=== PATIENT | female | born 1980 | race Caucasian/White ===

== ENCOUNTER 2020-12-17 13:50 | Outpatient (CLI) | payer OTHER, SELFPAY ==
--- NOTE | 2020-12-17 | ECHO_ITS ---
Patient Info Name: Meka Wilson Age: 40 years : 1980 Gender: Female Ht: 62 in Wt: 140 lbs BSA: 1.68 m2 HR: 78 bpm BP: 133 / 87 mmHg Heart Rhythm: Sinus Rhythm Technical Quality: Good Exam Date: 12/17/2020 2:49 PM Exam Location: [facility] Patient Status: Outpatient Admit Date: 12/17/2020 Staff Ordering Physician: ArvindClement MD Transcribing Machine Operator: Lelo Almeida RDCS Attending Provider: Arvind, Clement Cespedes MD Referring Physician: Arvind DOW; Exam Type: CA echo doppler color flow Study Info Indications - FAMILY HX/O BAV - Z82.79 Complete two-dimentional, color flow and Doppler transthoracic echocardiogram is performed with agitated saline and with contrast to opacify the left ventricle and to improve the delineation of the left ventricle endocardial borders. Summary 1. Left ventricular systolic function is normal, estimated at 60-65%. 2. There is no increased left ventricular wall thickness. 3. The aortic valve is trileaflet. 4. No pulmonary hypertension, estimated pulmonary arterial systolic pressure is 23 mmHg. Left Ventricle Left ventricular chamber dimension is normal. Left ventricular systolic function is normal, estimated at 60-65%. There is no increased left ventricular wall thickness. The left ventricular diastolic function is normal. Right Ventricle Right ventricular chamber dimension is normal. Right ventricular systolic function is normal. Left Atria Left atrial chamber dimension is normal. Right Atria Right atrial chamber dimension is normal. Aortic Valve The aortic valve is trileaflet. There is no aortic valve stenosis. There is no aortic valve regurgitation. Pulmonic Valve The pulmonic valve is not well visualized. There is trace pulmonic regurgitation. Mitral Valve The mitral valve has normal leaflets. There is no mitral valve regurgitation. Tricuspid Valve The tricuspid valve leaflets are normal. There is trace tricuspid valve regurgitation. No pulmonary hypertension, estimated pulmonary arterial systolic pressure is 23 mmHg. Pericardium/Pleural The pericardium appears normal. There is no pericardial effusion. Aorta The aortic root size at the sinus of Valsalva is normal. Left Ventricular Outflow Tract Name Value Normal LVOT 2D LVOT Diameter 2.0 cm LVOT Doppler LVOT Peak Gradient 5 mmHg LVOT Mean Gradient 3 mmHg LVOT VTI 21 cm LVOT VTI/AV VTI Ratio 0.9 LVOT Stroke Volume 64 ml LVOT CO 13.7 l/min LVOT CI 8.1 l/min/m2 Pulmonic Valve Name Value Normal PV Doppler PV Peak Gradient 13 mmHg Mitral Valve
== END 2020-12-17 13:51 | disposition home or self-care (01) ==
PROVIDERS: PCP Pediatrics; Visit Provider Pediatrics
DX: Z82.79 Family history of other congenital malformations, deformations and chromosomal abnormalities (principal)
CPT/HCPCS: 93306

== ENCOUNTER → 2021-08-30 13:16 | Outpatient (CLI) | payer OTHER, SELFPAY ==
--- NOTE | ~2021-08-30 | MM_ITS ---
EXAMINATION: MM screening ashwin BI w tamera HISTORY: Screening TECHNIQUE: Craniocaudal and mediolateral oblique 3-D tomosynthesis images were obtained and synthetic 2-D images were generated. CAD analysis was submitted and interpreted. COMPARISON: 05/21/2019 BREAST PARENCHYMAL COMPOSITION: The breasts are heterogeneously dense, which may obscure small masses . FINDINGS: There is no evidence of suspicious mass, calcification, or architectural distortion to sugg est malignancy in either breast. There has been no suspicious interval change. IMPRESSION: 1. No mammographic evidence of malignancy. 2. Recommend routine screening mammography in one year. BI-RADS Category 1: Negative Reviewed, dictated and finalized at location A.
== END ==
PROVIDERS: Visit Provider Obstetrics & Gynecology
DX: Z12.31 Encounter for screening mammogram for malignant neoplasm of breast (principal)
CPT/HCPCS: 77063; 77067

== ENCOUNTER → 2022-09-04 12:01 | Outpatient (CLI) | payer OTHER, SELFPAY ==
--- NOTE | ~2022-09-04 | MM_ITS ---
EXAMINATION: MM screening ashwin BI w tamera HISTORY: Screening mammogram TECHNIQUE: Craniocaudal and mediolateral oblique 3-D tomosynthesis images were obtained and synthetic 2-D images were generated. Bilateral rotated lateral CC views. .CAD analysis was submitted and inter preted. COMPARISON: No prior mammogram is available for comparison at this institution. BREAST PARENCHYMAL COMPOSITION: The breasts are heterogeneously dense, which may obscure small masses . FINDINGS: There is no evidence of suspicious mass, calcification, or architectural distortion to sugg est malignancy in either breast. There has been no suspicious interval change. IMPRESSION: 1. No mammographic evidence of malignancy. 2. Recommend routine screening mammography in one year. BI-RADS Category 1: Negative Reviewed, dictated and finalized at location A. ER PREPARER
== END ==
PROVIDERS: PCP Obstetrics & Gynecology; Visit Provider Obstetrics & Gynecology
DX: Z12.31 Encounter for screening mammogram for malignant neoplasm of breast (principal)
CPT/HCPCS: 77063; 77067

== ENCOUNTER → 2023-04-17 13:24 | Outpatient (CLI) | payer OTHER, SELFPAY ==
--- NOTE | ~2023-04-17 | MR_ITS ---
EXAMINATION: MR brain/brain stem wo con DATE: 04/17/2023 14:10 INDICATION: New onset seizure TECHNIQUE: Magnetic resonance imaging (MRI) of the brain and brainstem was performed without intraven ous contrast. Sequences included sagittal and axial T1-weighted SE, axial diffusion-weighted FS SE, a xial T2*-weighted GRE, axial T2-weighted FLAIR Propeller, axial T2-weighted Propeller, coronal T2-сергей ghted FLAIR, and coronal T1-weighted 3D FSPGR. Apparent diffusion coefficient (ADC) maps were created . COMPARISON: None. FINDINGS: There are no areas of restricted diffusion to suggest acute infarction. No intracranial hemorrhage or abnormal intracranial mass lesion. There are no intraparenchymal signal abnormalities seen on the ot her pulse sequences. The hippocampi appear normal and symmetric. No evident ruth matter heterotopias or other findings to suggest a neuronal migrational abnormality. The ventricles are symmetric and nor mal in size. There are no abnormal extra-axial fluid collections. Flow voids are seen in the cerebral arteries on the T2-weighted sequences consistent with their expected patency. Visualized orbits and soft tissues are unremarkable. IMPRESSION: 1. Normal brain MRI. Reviewed, dictated and finalized at location A. IMPRESSION: 1. Normal brain MRI.
== END ==
PROVIDERS: PCP Pediatrics; Visit Provider Pediatrics
DX: R56.9 Unspecified convulsions (principal)
CPT/HCPCS: 70551

== ENCOUNTER 2023-05-04 08:24 | Outpatient (CLI) | payer OTHER, SELFPAY ==
--- NOTE | 2023-05-04 11:31 | WPDNEUROLOGY ---
Neurology EEG Report General Information Date of Study: 05/04/23 TEST eeg DIAGNOSIS New onset seizures CONDITION OF RECORDING awake drowsy and sleep EEG NUMBER [id number] CLINICAL HISTORY patient reports about a month ago she was in [place] on vacation when she had a seizure. No previous history or family history of seizures. Did bite her tongue during the episode. EEG DESCRIPTION Basic resting occipital frequency consists of low-voltage 11 to 13 hertz per 2nd alpha activity admixed with low-voltage 15 to 18 hertz per 2nd beta activity. During drowsiness low-voltage beta activity seen diffusely admixed with waxing and waning posterior alpha rhythm. Bilateral symmetrical sleep activity is noted during sleep with symmetrical sleep spindles. Photic stimulation produced normal drive. Hyperventilation not done. Non paroxysmal. Nonfocal. Nonlateralizing. IMPRESSION Normal record
== END 2023-05-04 08:25 | disposition home or self-care (01) ==
LOC: ANHNEURO 08:26
PROVIDERS: PCP Pediatrics; Visit Provider Family Medicine
DX: R56.9 Unspecified convulsions (principal)
CPT/HCPCS: 95816

== ENCOUNTER → 2023-11-13 13:31 | Outpatient (CLI) | payer OTHER, SELFPAY ==
--- NOTE | ~2023-11-13 | MM_ITS ---
EXAMINATION: MM screening ashwin BI w tamera HISTORY: Screening TECHNIQUE: Craniocaudal and mediolateral oblique 3-D tomosynthesis images were obtained and synthetic 2-D images were generated. CAD analysis was submitted and interpreted. COMPARISON: Comparison to multiple prior studies sequentially, with oldest reviewed study dated 05/21. BREAST PARENCHYMAL COMPOSITION: The breasts are heterogeneously dense, which may obscure small masses FINDINGS: There is no evidence of suspicious mass, calcification, or architectural distortion to sugg est malignancy in either breast. There has been no suspicious interval change. IMPRESSION: 1. No mammographic evidence of malignancy. 2. Recommend routine screening mammography in one year. BI-RADS Category 1: Negative Reviewed, dictated and finalized at location A. D APPRAISER
== END ==
PROVIDERS: PCP Obstetrics & Gynecology; Visit Provider Obstetrics & Gynecology
DX: Z12.31 Encounter for screening mammogram for malignant neoplasm of breast (principal)
CPT/HCPCS: 77063; 77067

== ENCOUNTER 2024-01-15 08:51 | Outpatient (CLI) | payer OTHER, SELFPAY | END 2024-01-15 08:52 | disposition home or self-care (01) | LOC: ANHAUDIO 08:51 | PROVIDERS: PCP Obstetrics & Gynecology; Visit Provider Otolaryngology | DX: H91.93 Unspecified hearing loss, bilateral (principal); H93.13 Tinnitus, bilateral | CPT/HCPCS: 92557; 92567 ==